=== PATIENT | male | born 1985 | race African-American/Black ===

== ENCOUNTER 2024-08-18 00:38 | Emergency (ER) | payer SELFPAY ==
[~2024-08-18] VITALS: Ht 188 cm; Wt 136.4 kg
[2024-08-18] MEDS: SODIUM CHLORIDE 0.9% 1,000 ML IV ONE ×2 (01:41→07:24)
[2024-08-18 01:42] VITALS: TEMP 98.9
[2024-08-18] MEDS: NALOXONE HCL 1 MG/ML 2 ML SYRINGE IVP ONE (01:42)
[2024-08-18 01:46] LABS: BASOPHILS % (AUTO) 0.5 % (0.0-2.0); EOSINOPHILS % (AUTO) 2.3 % (1.0-6.0); HEMATOCRIT 40.5 % (41-53); HEMOGLOBIN 12.9 g/dL (13.5-17.5); LYMPHOCYTES # (AUTO) 1.8 K/uL (1.0-4.8); LYMPHOCYTES % (AUTO) 16.2 % (22.0-44.0); MEAN CORPUSCULAR HEMOGLOBIN 26.7 pg (26.0-34.0); MEAN CORPUSCULAR HGB CONC 31.9 G/dL (31.0-37.0); MEAN CORPUSCULAR VOLUME 84 fL (80-100); MONOCYTES # (AUTO) 1.4 K/uL (0.1-1.0); NEUTROPHILS # (AUTO) 7.8 K/uL (1.8-7.7); PLATELET COUNT (AUTO) 216 K/uL (150-450); RED BLOOD CELL COUNT(AUTO) 4.82 MIL/uL (4.50-5.90); RED CELL DISTRIBUTION WIDTH 15.5 % (11.5-14.5); WHITE BLOOD COUNT (AUTO) 11.3 K/uL (4.5-11.0)
[2024-08-18 02:02] LABS: ALANINE AMINOTRANSFERASE 64 U/L (12-78); ALBUMIN 3.3 g/dL (3.4-5.0); ALKALINE PHOSPHATASE 83 U/L (46-116); ANION GAP 11 mmol/L (8-16); ASPARTATE AMINOTRANSFERASE 52 U/L (15-37); CALCIUM, TOTAL 8.5 mg/dL (8.8-10.5); CARBON DIOXIDE 28 mmol/L (22-29); CHLORIDE 100 mmol/L (98-107); GLOMERULAR FILTR. RATE CALC > 60 mL/min (>60); GLUCOSE,RANDOM 104 mg/dL (70-110); SODIUM SERUM 139 mmol/L (136-145); TOTAL PROTEIN, SERUM 7.4 g/dL (6.4-8.2); UREA NITROGEN, BLOOD 22 mg/dL (7-18)
[2024-08-18 02:06] LABS: ALCOHOL, BLOOD (SERUM) < 3 mg/dL (0-10)
[2024-08-18 02:16] LABS: POTASSIUM 2.9 mmol/L (3.5-5.1)
[2024-08-18] MEDS: POTASSIUM CHL 10 MEQ/WATER 50 ML IV SCH (02:30)
[2024-08-18] MEDS: LORazepam 2 MG/ML VIAL IVP ONE (07:23)
[2024-08-18 09:02] LABS: PH,URINE DRUG SCREEN 5.5 (5.0-8.0)
[2024-08-18 09:11] LABS: ALCOHOL, URINE DRUG SCREEN NEGATIVE (NEGATIVE); AMPHET/METH SCREEN,URINE POSITIVE (NEGATIVE); BARBITURATE SCREEN, URINE NEGATIVE (NEGATIVE); BENZODIAZEPINES SCREEN,URINE NEGATIVE (NEGATIVE); CANNABINOID SCREEN,URINE POSITIVE (NEGATIVE); COCAINE SCREEN,URINE NEGATIVE (NEGATIVE); METHADONE SCREEN, URINE NEGATIVE (NEGATIVE); OPIATE SCREEN,URINE NEGATIVE (NEGATIVE); PHENCYCLIDINE SCREEN,URINE NEGATIVE (NEGATIVE)
[2024-08-18 11:40] LABS: CREATINE KINASE, TOTAL ONLY 1119 U/L (39-308)
[2024-08-18] MEDS: MAGNESIUM SULFATE 1 GM in DEXTROSE 5%-WATER 50 ML IV ONE (12:22)
[2024-08-18 12:43] VITALS: BP 132/75; PULSE 68; RESP 16; O2SAT 96
== END 2024-08-18 14:41 | disposition home or self-care (01) ==
LOC: EMS 00:40
DX: T40.411A Poisoning by fentanyl or fentanyl analogs, accidental (unintentional), initial encounter (principal); F15.10 Other stimulant abuse, uncomplicated; E86.0 Dehydration; Y92.89 Other specified places as the place of occurrence of the external cause
CPT/HCPCS: 99285; 96361; 96365; 70450; 96375; 80053; 82550; 83735; 85025; 36415; 80307; G0480; J2060; J2310; J7060; J3480; J3475; J7030